=== PATIENT | female | born 1960 | race Caucasian/White ===

== ENCOUNTER 2022-12-24 14:34 | Emergency (ER) | payer MEDICARE, OTHER ==
[2022-12-24] MEDS ORDERED: Dexamethasone 10 MG/ML SDV IM STA (15:29)
== END 2022-12-24 16:09 | disposition home or self-care (01) ==
LOC: MW.ED 14:34
DX: T63.481A Toxic effect of venom of other arthropod, accidental (unintentional), initial encounter (principal)
CPT/HCPCS: 96372; 99283; J1100

== ENCOUNTER 2023-06-16 12:36 | Day surgery (SDC) | payer MEDICARE, OTHER, MEDICAID ==
[~2023-06-16 12:36] MED LIST: Lactated Ringers 1,000 ML IV SCH
[2023-06-16] MEDS ORDERED: propofoL 50 ML ONE (13:22)
[2023-06-16] MEDS ORDERED: Lactated Ringers 1,000 ML IV SCH (15:15)
== END 2023-06-16 15:27 | disposition home or self-care (01) ==
LOC: MW.SDS 12:36
PROVIDERS: ATTEND Surgery
DX: K57.30 Diverticulosis of large intestine without perforation or abscess without bleeding (principal); D64.9 Anemia, unspecified; K92.1 Melena; K44.9 Diaphragmatic hernia without obstruction or gangrene; I51.89 Other ill-defined heart diseases; E78.5 Hyperlipidemia, unspecified; K21.9 Gastro-esophageal reflux disease without esophagitis; I10 Essential (primary) hypertension; J45.909 Unspecified asthma, uncomplicated; I25.10 Atherosclerotic heart disease of native coronary artery without angina pectoris; M19.90 Unspecified osteoarthritis, unspecified site; F41.9 Anxiety disorder, unspecified; E78.00 Pure hypercholesterolemia, unspecified; K58.9 Irritable bowel syndrome, unspecified; R06.02 Shortness of breath; M81.0 Age-related osteoporosis without current pathological fracture; Z88.0 Allergy status to penicillin; Z88.5 Allergy status to narcotic agent; Z88.8 Allergy status to other drugs, medicaments and biological substances; Z79.899 Other long term (current) drug therapy
CPT/HCPCS: 43239; 45378; J2704; J7120; 00813; 88305

== ENCOUNTER 2024-09-20 06:59 | Day surgery (SDC) | payer MEDICARE, OTHER ==
[2024-09-20] MEDS: Lactated Ringers 1,000 ML IV SCH (07:35)
[2024-09-20] MEDS ORDERED: propofoL 500 MG/50 ML 50 ML ONE (11:02)
[2024-09-20] MEDS ORDERED: Lactated Ringers 1,000 ML IV SCH (11:30)
== END 2024-09-20 12:15 | disposition home or self-care (01) ==
LOC: MW.SDS 06:59
PROVIDERS: ATTEND Surgery
DX: Z12.11 Encounter for screening for malignant neoplasm of colon (principal); R19.5 Other fecal abnormalities; K52.9 Noninfective gastroenteritis and colitis, unspecified; I25.10 Atherosclerotic heart disease of native coronary artery without angina pectoris; I11.0 Hypertensive heart disease with heart failure; I50.9 Heart failure, unspecified; E03.9 Hypothyroidism, unspecified; Z88.8 Allergy status to other drugs, medicaments and biological substances; Z79.82 Long term (current) use of aspirin; Z79.899 Other long term (current) drug therapy
CPT/HCPCS: 45380; J2704; J7120; 00811; 88305